=== PATIENT | male | born 1985 | race Caucasian/White ===

== ENCOUNTER 2024-06-21 22:51 | Emergency (ER) | payer OTHER ==
[~2024-06-21] VITALS: Ht 170.2 cm; Wt 86.3 kg
[2024-06-21 23:08] VITALS: O2SAT 97
[2024-06-22] MEDS: FLUORESCEIN SODIUM 1MG/STRIP LEFTEYE ONE (01:17)
[2024-06-22] MEDS: TETRACAINE 0.5% OPHTH DROPS 4ML LEFTEYE ONE (01:17)
[2024-06-22] MEDS ORDERED: OCUFLX RIGHTEYE (02:00)
[2024-06-22 02:20] VITALS: BP 115/71; PULSE 55; RESP 16; TEMP 36.7; O2SAT 98
== END 2024-06-22 02:24 | disposition home or self-care (01) ==
LOC: ER 22:51
DX: S05.00XA Injury of conjunctiva and corneal abrasion without foreign body, unspecified eye, initial encounter (principal); X58.XXXA Exposure to other specified factors, initial encounter; Y93.89 Activity, other specified; Y92.89 Other specified places as the place of occurrence of the external cause; Y99.8 Other external cause status
CPT/HCPCS: 99283